=== PATIENT | male | born 1980 | race Two or more races ===

== ENCOUNTER 2019-03-17 13:18 | Emergency (ER) | payer SELFPAY ==
[~2019-03-17] VITALS: Ht 162.6 cm; Wt 59.0 kg
[2019-03-17 13:40] VITALS: BP 150/70
--- NOTE | 2019-03-17 14:36 | Emergency Room Report ---
History of Present Illness General Chief Complaint: Laceration Source: Patient Present Illness HPI 39-year-old male presents to the emergency department complaining of right lower leg laceration x2 hours. Patient reports 3 out of 10 severity pain he reports moderate amount of bleeding he states he went through a window and it broke. Patient denies taking blood thinning medications he states he does drink alcohol regularly and reports that 2 hours ago he had a shot of vodka. He is not sure when his last tetanus vaccination was. He denies bony tenderness he denies paresthesias. Reports no other injuries. Allergies: Coded Allergies: No Known Allergies (Unverified , 03/17/19) Patient History Past Medical History: see triage record Past Surgical History: none Pertinent Family History: none Social History: Reports: alcohol use Reviewed Nursing Documentation: PMH: Agreed; PSxH: Agreed Review of Systems All Other Systems: negative except mentioned in HPI Physical Exam Vital Signs Date Time Temp Pulse Resp B/P (MAP) Pulse Ox O2 Delivery O2 Flow Rate FiO2 03/17/19 13:20 98.6 114 18 150/70 (96) 98 Room Air Sp02 EP Interpretation: reviewed, normal General Appearance: no apparent distress, alert, GCS 15, non-toxic, other - Mildly disheveled, poor hygiene Head: normocephalic, atraumatic Eyes: bilateral eye normal inspection, bilateral eye PERRL ENT: hearing grossly normal, normal voice Neck: full range of motion, no bony tend Respiratory: chest non-tender, lungs clear, normal breath sounds, no respiratory distress, no accessory muscle use, no wheezing, speaking full sentences Cardiovascular #1: regular rate, rhythm, normal capillary refill Cardiovascular #2: 2+ dorsalis pedis (R) - Both Dorsalis Pedis and POSTERIOR TIBIALIS INTACT AND 2 + Bilaterally., 2+ dorsalis pedis (L) - Both Dorsalis Pedis and POSTERIOR TIBIALIS INTACT AND 2 + Bilaterally. Gastrointestinal: soft Musculoskeletal: back normal, gait/station normal - compensating/ favoring the right leg. , normal range of motion, non-tender Neurologic: alert, oriented x3, responsive, motor strength/tone normal, sensory intact, normal gait - compensating/ favoring the right leg. No need for assistance., speech normal, other - NO motor weakness. no significant sensory deficit. of the affected extremity., grossly normal Psychiatric: judgement/insight normal, no suicidal/homicidal ideation, no delusions, anxious Skin: laceration - Complex 2 inch laceration to the right posterior calf with arterial bleeding and requiring multiple pressure dressings without hemostasis. Medical Decision Making JUDE Attestation Dr. Rose is my supervising Physician whom patient management has been discussed with. Homeless Attestation I, The treating provider, Aline ROQUE, has assessed and agrees that patient is medically stable for discharge to an outpatient disposition. Diagnostic Impression: Primary Impression: Laceration ER Course 39-year-old male presents to the emergency department complaining of right lower leg laceration x2 hours. Patient reports 3 out of 10 severity pain he reports moderate amount of bleeding he states he went through a window and it broke. Patient denies taking blood thinning medications he states he does drink alcohol regularly and reports that 2 hours ago he had a shot of vodka. He is not sure when his last tetanus vaccination was. He denies bony tenderness he denies paresthesias. Reports no other injuries. Ddx considered but are not limited to laceration, tendon injury, cellulitis, amputation Vital signs: are WNL, pt. is afebrile H&PE are most consistent with: Complex- Right posterior calf laceration approx 2 inches in length- with arterial involvement. Distal pulses are 2+ with good cap refill. ORDERS: none required at this time, the diagnosis is clinical ED INTERVENTIONS: -Tetanus vaccine was administered as pt. vaccination status was unknown. - pt. is anesthetized with 1%lidocaine w. epi. - tourniquet applied at the knee and was left on for 30 minutes. - The wound was copiously irrigated with normal saline, and explored for foreign body for which no FB was found. Closure: --3 figure 8 sutures were placed to ligate superficial arteries and obtain hemostasis using 4.0 Vycril -- 3 deep mattress sutures were used to approximate the underlying subcutaneous fat of the open wound using 4.0 Vycril -- The wound was approximated and closed using [ ] interrupted 4.0 Ethilon sutures. -Bacitracin and sterile dressing is applied. -Keflex 500mg PO -Bactrim DS PO Discussed with patient: That we make every effort to approximate the laceration as best as we can so that scarring will be as cosmetically pleasing as possible with our limited cosmetic skill set in the Emergency dept. Regardless of our best efforts there will be scarring after laceration repair. The extent of scarring is unknown at this time. DISCHARGE: At this time pt. is stable for d/c to home. Will provide printed patient care instructions, and any necessary prescriptions. Care plan and follow up instructions have been discussed with the patient prior to discharge. Other X-Ray Diagnostic Results Other X-Ray Diagnostic Results : X-Ray ordered: Right Tib/Fib--R/o Fb # of Views/Limited Vs Complete: 2 View Indication: Pain EP Interpretation: Yes JUDE Xray: Interpretation reviewed, by supervising MD, and agrees with findings. Interpretation: no dislocation, no soft tissue swelling, no fractures Impression: No acute disease Electronically Signed by: Aline Hernandez PA-C Last Vital Signs Date Time Temp Pulse Resp B/P (MAP) Pulse Ox O2 Delivery O2 Flow Rate FiO2 03/17/19 13:20 98.6 114 18 150/70 (96) 98 Room Air Disposition: HOME, SELF-CARE Condition: Stable Scripts Ibuprofen* (MOTRIN*) 400 Mg Tablet 400 MG ORAL THREE TIMES A DAY, #30 TAB 0 Refills Prov: Aline Hernandez 03/17/19 Bacitracin/Polymyxin B Sulfate (BACITRACIN-POLYMYXIN OINTMENT) 28.35 Gm Oint...g. 1 APPLIC TP BID, #28.3 GM Prov: Aline Hernandez 03/17/19 Trimethoprim/Sulfamethoxazole 160/800* (BACTRIM DS TABLET*) 1 Each Tablet 1 TAB ORAL TWICE A DAY for 7 Days, #14 TAB Prov: Aline Hernandez 03/17/19 Cephalexin* (KEFLEX*) 500 Mg Capsule 500 MG ORAL EVERY 12 HOURS for 7 Days, #14 CAP 0 Refills Prov: Aline Hernandez 03/17/19 Patient Instructions: Laceration Care, Adult Additional Instructions: NO PUEDE CAMINAR CON ALEXSANDER LR !!!! POR 14 CAMPA!!!!! ( DOS SEMANAS) REGRESAR AQUI in 14 CAMPA PARA QUITAR LOS PUNTOS Take medications as directed. Follow up with a Primary Care Provider in 3-5 days, even if your symptoms have resolved. Return sooner to ED if new symptoms occur, or current symptoms become worse. \ - Please note that this Emergency Department Report was dictated using [employer] education aide technology software, occasionally this can lead to erroneous entry secondary to interpretation by the dictation equipment. Aline Hernandez Mar 17, 2019 14:36
--- NOTE | 2019-03-17 15:30 | Diagnostic Imaging Report ---
Indication: Pain, trauma status post laceration Technique: 2 views of the right tibia and fibula Comparison: none Findings: No radiopaque foreign body demonstrated. No acute fractures. No dislocations. No bony destruction. Tiny exostosis is seen coming off the lateral distal tibial cortex Impression: No acute process
[2019-03-17] MEDS ORDERED: Tetanus/Diptheria/Pertussis IM ONE (15:45)
[2019-03-17] MEDS ORDERED: Lidocaine 2% 20mg/ml/Epi 0.005mg/ml 20ml vial INJ ONE (15:45)
[2019-03-17] MEDS ORDERED: BACTRIM DS TAB1 EAC1 ORAL (18:39)
[2019-03-17] MEDS ORDERED: BACITRACIN-P28.35 GM TP (18:39)
[2019-03-17] MEDS ORDERED: CEPHALEXIN500 MG ORAL (18:39)
[2019-03-17] MEDS ORDERED: IBUPROFEN400 MG ORAL (18:39)
[2019-03-17] MEDS ORDERED: Cephalexin 500mg cap ORAL ONE (18:45)
[2019-03-17] MEDS ORDERED: Bactrim-DS 1 tab ORAL ONE (18:45)
[2019-03-17 18:52] VITALS: BP 130/70
== END 2019-03-17 18:52 | disposition home or self-care (01) ==
LOC: EMR 14:59
DX: S81.811A Laceration without foreign body, right lower leg, initial encounter (principal); W25.XXXA Contact with sharp glass, initial encounter; Y92.9 Unspecified place or not applicable; Z23 Encounter for immunization
CPT/HCPCS: 90471; 90715; 99283